=== PATIENT | female | born 1945 | race Caucasian/White ===

== ENCOUNTER → 2016-07-25 | Outpatient (CLI) | payer OTHER ==
--- NOTE | 2016-07-25 11:04 | DIAGNOSTIC IMAGING REPORT ---
CHEST CT WITHOUT CONTRAST CT DOSE: 853.00 mGy.cm HISTORY: R05 Chronic [id number] SOB (shortness of breath)Appointment robert TECHNIQUE: Multiaxial CT images of the chest were performed without contrast. COMPARISON: None. FINDINGS: The central airways are patent. No pleural effusions. No pneumothorax. Small area of groundglass densities within the left lower lobe posteriorly favor mild dependent change/atelectasis. Otherwise, the lungs are clear. No fractures within the visualized osseous structures. Normal caliber thoracic aorta. No mediastinal or hilar lymphadenopathy. The heart is normal in size. Cholelithiasis. Hepatic steatosis. IMPRESSION: 1. Small area of groundglass densities within the left lower lobe posteriorly which favors mild dependent change/atelectasis. Otherwise, the lungs are clear. 2. Cholelithiasis. Electronically signed by: Devonte James M.D. 07/25/2016 11:03 AM Dictated Date/Time: 07/25/2016 10:58 AM
== END | disposition home or self-care (01) ==
LOC: C.CTS 10:36
PROVIDERS: ATTEND Internal Medicine Pulmonary Disease
DX: R06.02 Shortness of breath (principal); R05 Cough

== ENCOUNTER → 2016-11-01 | Outpatient (CLI) | payer OTHER ==
--- NOTE | 2016-11-01 15:38 | MAMMOGRAPHY REPORT ---
BILATERAL DIGITAL DIAGNOSTIC MAMMOGRAM TOMOSYNTHESIS WITH CAD: 11/01/2016 CLINICAL HISTORY: 71-year-old woman with a personal history of left breast cancer status post breast conservation treatment. Also history of benign stereotactic biopsy in the left breast of new microca lcifications which was performed in November 2015. TECHNIQUE: Bilateral CC and MLO 2-D digital and tomosynthesis images, spot magnification left CC and ML views were obtained. Current study was also evaluated with a Computer Aided Detection (CAD) syst em. COMPARISON: Comparison is made to exams dated: 04/29/2016 mammogram, 11/17/2015 stereotactic biopsy, 11/17/2015 mammogram, 11/04/2015 mammogram, 05/05/2015 mammogram, and 04/09/2015 breast MRI - [facility]. BREAST COMPOSITION: The tissue of both breasts is heterogeneously dense, which may obscure small mas ses. FINDINGS: The exam is suboptimal due to inability of the patient to tolerate adequate positioning. T here is less posterior tissue included on the MLO views comparing to prior exams. There are diffuse bilateral calcifications in the breasts including numerous benign rim calcifications, rodlike secreto ry calcifications in the right breast and numerous clusters and groupings of microcalcifications part icularly in the lateral left breast. There is a stable metallic biopsy marker in the 12:[address] When evaluating the calcifications near the surgical site on the spot magnification views, all o f the microcalcifications appear to be in similar number and configuration comparing to prior spot ma gnification views. There is a loose grouping of round microcalcifications measuring 5 mm just anteri or to the biopsy marker clip on the left spot magnification CC view. A 2 mm cluster of punctate and amorphous microcalcifications is located 7 cm anterior to the biopsy marker clip on the spot magnific ation left CC view. There is powder and deodorant artifact in the medial left breast; this is seen t o correlate with skin based on the tomosynthesis images. There is a stable metallic biopsy marker cl ip in the lower outer quadrant of the right breast. There is no evidence of a new suspicious mass, focal area of architectural distortion or new microcal cifications bilaterally. However, given the dense breasts, heterogeneous pattern and multiple calcif ications bilaterally, would also recommend continuation of breast MRI for additional surveillance. T his can be performed in April 2017. IMPRESSION: ACR BI-RADS CATEGORY 2: BENIGN Stable bilateral mammograms including postsurgical changes and numerous groupings and clusters of augustus rocalcifications within the left breast, without mammographic evidence of malignancy. Recommend bila teral mammography in 12 months and also continuation of screening breast MRI, due in April 2017. This will also ensure inclusion and visualization of all of the posterior breast tissue. These results and recommendations were discussed with the patient at the time of the exam. Approximately 10% of breast cancers are not detected with mammography. A negative mammographic report should not delay biopsy if a clinically suggestive mass is present. Karoline Carpio M.D. ay/:11/01/2016 13:33:27 [place] Assembler: Columba Du, [facility] letter sent: Normal 1/2 BI-RADS Code: ACR BI-RADS Category 2: Benign
== END | disposition home or self-care (01) ==
LOC: C.MAMM 07:54
PROVIDERS: ATTEND Surgery
DX: R92.0 Mammographic microcalcification found on diagnostic imaging of breast (principal); Z85.3 Personal history of malignant neoplasm of breast

== ENCOUNTER → 2017-04-10 | Outpatient (CLI) | payer OTHER ==
[~2017-04-10] MED LIST: GADAVIST IV PRN
--- NOTE | 2017-04-11 14:26 | MAMMOGRAPHY REPORT ---
BREAST MRI OF BOTH BREASTS : 04/10/2017 CLINICAL HISTORY: 69-year-old woman with a personal history of left breast cancer status post breast conservation treatment. She presents for breast MRI for additional screening, and 2 in short inclusi on of posterior breast tissue within the [id number], given suboptimal visualization of posterior t issue mammographically, dense breasts and multiple bilateral calcifications. COMPARISON: Comparison is made to exams dated: 04/29/2016 mammogram, 11/17/2015 stereotactic biopsy, 11/17/2015 mammogram, 11/01/2016 mammogram, 11/04/2015 mammogram, and 05/05/2015 mammogram, 06/10/2014 a nd 01/28/2014 breast MRI- [facility]. TECHNIQUE: Using a 1.5 Pricila magnet and dedicated breast coil, multisequence axial images were obtain ed through the breasts. After uneventful IV administration of 10 mL of Gadavist, dynamic multiphase contrast-enhanced axial images, and sagittal postcontrast were obtained. Temporal subtraction axial images and 3-D MIP images are provided. Everything was then reviewed on a 3-D workstation, [employer]. FINDINGS: The patient self terminated the exam after the second set of dynamic postcontrast images. The initial postcontrast images are diagnostic in quality and therefore this exam is considered adequ ate for interpretation. However, sagittal postcontrast images were also not obtained. Right breast: There is mild background parenchymal enhancement of the right breast. A small area of susceptibility artifact is seen in the 8:00 posterior right breast, denoting a site of prior benign b iopsy. No new suspicious enhancing mass, non-mass enhancement, architectural distortion or suspiciou s kinetics are seen in the right breast. No skin thickening or nipple retraction. No suspicious rig ht axillary lymphadenopathy. Left breast: There is mild background parenchymal enhancement of the left breast. Expected mobility architect manager ural distortion in the 12:00 middle one third of the left breast at the site of prior lumpectomy. Th ere is a small amount of non-mass enhancement centrally in the surgical scar, decreased comparing to the prior breast MRI from 2014, likely representing evolving postsurgical change, as this area previo usly contained central fat representing fat necrosis. No new suspicious enhancing mass, non-mass enh ancement, unexpected architectural distortion or suspicious kinetics are identified in the left breas t. No new unexpected skin thickening or nipple retraction. No suspicious left axillary lymphadenopa thy. IMPRESSION: ACR BI-RADS CATEGORY 2: BENIGN Suboptimal exam given that the patient terminated the study early, although it is still of diagnostic quality. No MRI evidence of malignancy in the breasts. Continuation of bilateral annual mammograph y is recommended, with consideration of additional screening with breast MRI, if the patient can tole rate. The patient will receive written notification of the results. Karoline Carpio M.D. 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
== END | disposition home or self-care (01) ==
LOC: C.MRI 06:18
PROVIDERS: ATTEND Surgery
DX: Z85.3 Personal history of malignant neoplasm of breast (principal)